=== PATIENT | male | born 1950 | race Caucasian/White ===

== ENCOUNTER 2017-08-12 07:17 | Day surgery (SDC) | payer OTHER ==
[2017-07-12 12:24] VITALS: BMI 31.9
[2017-08-12 11:35] VITALS: TEMP 97.1
[2017-08-12] MEDS ORDERED: oxyCODONE HCL 5 MG TABLET PO PRN (11:43)
[2017-08-12] MEDS ORDERED: ONDANSETRON 4 MG/2 ML VIAL IVPUSH PRN (11:43)
[2017-08-12] MEDS ORDERED: LACTATED RINGERS SOLUTION 1,000 ML IV SCH (11:45)
--- NOTE | 2017-08-12 11:55 | OP ---
Operative Note - Note: Operative Date: 08/12/17 Pre-Operative Diagnosis: left renal stone Operation: left eswl Findings: 5 mm left lower pole stone Post-Operative Diagnosis: Same as Pre-op Surgeon: Enrique Cohen Anesthesia: Fractional
[2017-08-12 12:02] VITALS: BP 128/82; PULSE 55
--- NOTE | 2017-08-12 19:08 | OP ---
DATE OF OPERATION: 08/12/2017 PREOPERATIVE DIAGNOSIS: Left renal stone. POSTOPERATIVE DIAGNOSIS: Left renal stone. PROCEDURE: Left extracorporeal shock wave lithotripsy. ANESTHESIA: Fractional. ATTENDING: Nava Lara MD DESCRIPTION OF OPERATION: Patient was brought in the operating room, placed in supine position on the operating room table. Ultrasonography and fluoroscopy were performed. A 5-mm left lower pole stone was identified. Fractional anesthesia and Levaquin were given preoperatively. Once the patient was sedated, extracorporeal shock wave lithotripsy was performed; 2500 impulses at 17 joules of power were applied to the stone. Excellent fragmentation of the stone was noted under real-time ultrasonography and fluoroscopy. No complications were noted. Patient tolerated the procedure well. Disposition of the patient was to recovery room. NAVA LARA M.D. [id number]
== END 2017-08-12 12:00 | disposition home or self-care (01) ==
LOC: JASU-SURG 07:17
PROVIDERS: ATTEND Urology
PROC: 0TF4XZZ Fragmentation in Left Kidney Pelvis, External Approach (ICD-10-PCS; principal; 2017-08-12 08:45)
DX: N20.0 Calculus of kidney (principal)
CPT/HCPCS: 82962